=== PATIENT | female | born 1955 | race Caucasian/White ===

== ENCOUNTER → 2017-05-24 | Outpatient (CLI) | payer OTHER ==
[~2017-05-24] MED LIST: ADR PO; ADVIL MIGRAINE200 MG PO; ALDACTAZIDE 251 EACH PO; AMBIEN10 MG PO; ASPIR 8181 M1 PO; ATORVASTATIN CA40 MG PO; BUPROPION XL150 MG PO; BUTALB-APAP-CA1 EACH PO; BUTTERBUR; CYMBALTA30 MG PO; DEXILANT60 MG PO; DHEA PO; DIAZEPAM2 MG PO; DULOXETINE HCL60 MG PO; ERGOCALCIF50000 UNIT PO; Ecotrin PO; Fioricet,Esgic,Repan PO; GLUCOPHAGE500 MG PO; KEPPRA500 MG PO; LAMICTAL200 MG PO; LEVETIRACETAM750 M1 PO; LEVOTHROID150 MCG PO; LEVOTHYROXINE175 MCG PO; Lopressor PO; MAGNESIUM; MELATONIN10 M1 PO; METFORMIN HCL500 MG PO; MULTIVITAMIN1 EAC2 PO; NEXIUM40 MG PO; PEPTO BISMOL240 ML PO; PROMETHAZINE HC25 M1 PO; Plavix PO; Pravachol PO; RELPAX40 MG PO; RIBOFLAVIN50 MG PO; SENOKOT S,PE1 TABLET PO; STRATTERA100 MG PO; STRATTERA18 MG PO; TRAMADOL HCL50 MG PO; TUMS500 MG PO; VITAMIN C500 M1 PO; VITAMIN D250000 UNIT PO; VITAMIN E1000 UNIT PO; Vicodin,Norco 5/325 PO; [UNRECOGNIZED DRUG - OTHER]; [UNRECOGNIZED DRUG - OTHER]; [UNRECOGNIZED DRUG - OTHER] PO
[2017-05-24 17:02] LABS: ANION GAP 7 MEQ/L (2-14); CHLORIDE 106 MEQ/L (99-109); GFR ESTIMATE (CALCULATED) > 59 mL/min/; GLUCOSE 89 mg/dL (70-99); POTASSIUM 4.8 MEQ/L (3.7-5.4); SAMPLE HEMOLYSIS CHECK 0; SAMPLE ICTERIC CHECK 0; SAMPLE LIPEMIA CHECK 0; SODIUM 141 MEQ/L (136-147); UREA NITROGEN (BUN) 17 mg/dL (9-23)
[2017-05-24 17:16] LABS: APPEARANCE CLEAR/COLORLESS; RED CELL AREA COUNTED 18; RED CELL COUNT 0 /MM^3 (0-1); RED CELL DILUTION 1; WBC AREA COUNTED 18; WBC DILUTION 1; WHITE CELL COUNT 3 /MM^3 (0-5); WHITE CELL RAW COUNT 5
[2017-05-24 17:17] LABS: CSF EOSINOPHILS ND % (0-25); MONONUCLEAR WBC'S ND % (50-90); POLYNUCLEAR WBC'S ND % (0-3)
[2017-05-26 17:50] LABS: Albumin, Serum 3.5 g/dL (3.2-4.6); Albumin, Serum 3.6 g/dL (3.2-4.6); IgG Index, CSF 0.42 (<0.66)
[2017-05-26 20:14] LABS: TOXOPLASMA IgM (ACUTE ONLY)+ <8.00 AU/mL (<8.00)
== END | disposition home or self-care (01) ==
LOC: RAD 14:41
PROVIDERS: Psychiatry & Neurology Neurology
PROC: 009U3ZZ Drainage of Spinal Canal, Percutaneous Approach (ICD-10-PCS; principal; 2017-05-24)
DX: R93.0 Abnormal findings on diagnostic imaging of skull and head, not elsewhere classified (principal); R26.81 Unsteadiness on feet
CPT/HCPCS: 62270; 77003; 80048; 82040; 82040 90; 82042 90; 82784 90; 82945; 83873 90; 83916 90; 84157; 86592 90; 86617 90; 86618 90; 86778 90; 87070; 87102; 87116; 87205; 87206; 87899; 89051

== ENCOUNTER 2017-07-24 22:59 | Emergency (ER) | payer OTHER ==
[~2017-07-24] VITALS: Ht 175.3 cm; Wt 87.2 kg
[2017-07-25 00:24] LABS: EOSINOPHIL (%) 0 % (0-5); HEMATOCRIT 31.5 % (36.0-46.0); IMMATURE GRANULOCYTE (%) 0.3 % (0.0-0.7); INSTRUMENT ABS NEUTROPHIL CT 9.2 K/uL; LYMPHOCYTE COUNT 0.9 K/uL (1.0-2.8); MCH 29.5 PG (29.0-34.0); MCHC 33.3 G/DL (30.0-36.0); MCV 88.5 FL (83-99); MEAN PLAT.VOLUME 10.9 uM^3 (9.5-12.4); MONOCYTE (%) 8.3 % (3-12); MONOCYTE COUNT 0.9 K/uL (0-0.8); NEUTROPHIL (%) 82.9 % (45-76); NEUTROPHIL COUNT 9.2 K/uL (1.8-6.4); PLATELET COUNT 172 K/uL (156-360); RBC DIS.WIDTH-CV 13.3 % (11.8-14.6); RBC DIS.WIDTH-SD 43.3 % (39-53); WHITE BLOOD COUNT 11.1 K/uL (4.1-10.2)
[2017-07-25 00:28] LABS: RED BLOOD COUNT 3.56 M/uL (3.80-5.20)
[2017-07-25 00:32] LABS: AMYLASE 42 IU/L (1-118); CHLORIDE 109 mEq/L (99-109); POTASSIUM 4.7 mEq/L (3.7-5.4); SODIUM 142 mEq/L (136-147)
[2017-07-25 00:33] LABS: GLUCOSE 156 mg/dL (70-99)
[2017-07-25 00:35] LABS: ANION GAP 12 MEQ/L (2-14)
[2017-07-25 00:37] LABS: GFR ESTIMATE (CALCULATED) > 59 mL/min/; SERUM ETHYL ALCOHOL < 10 mg/dL
[2017-07-25 00:38] LABS: UREA NITROGEN (BUN) 25 mg/dL (9-23)
[2017-07-25 00:40] LABS: LIPASE 32 U/L (1.0-51.0)
[2017-07-25 02:55] VITALS: BP 137/66
== END 2017-07-25 02:45 | disposition short-term general hospital (02) ==
LOC: EME 22:59
PROVIDERS: Emergency Medicine
DX: S82.851B Displaced trimalleolar fracture of right lower leg, initial encounter for open fracture type I or II (principal); S42.031A Displaced fracture of lateral end of right clavicle, initial encounter for closed fracture; S82.61XA Displaced fracture of lateral malleolus of right fibula, initial encounter for closed fracture; S93.04XA Dislocation of right ankle joint, initial encounter; W10.9XXA Fall (on) (from) unspecified stairs and steps, initial encounter; Y92.009 Unspecified place in unspecified non-institutional (private) residence as the place of occurrence of the external cause; Z23 Encounter for immunization; Z79.82 Long term (current) use of aspirin; I25.2 Old myocardial infarction; E03.9 Hypothyroidism, unspecified; E11.9 Type 2 diabetes mellitus without complications; E78.5 Hyperlipidemia, unspecified; F32.9 Major depressive disorder, single episode, unspecified; J45.909 Unspecified asthma, uncomplicated; I10 Essential (primary) hypertension; K21.9 Gastro-esophageal reflux disease without esophagitis
CPT/HCPCS: 70450; 72125; 73030; 73600; 73610; 80048; 81003; 82150; 83690; 85025; 86850; 86900; 86901; G0480; J0690; J2405; J3010

== ENCOUNTER 2017-10-12 17:06 | Emergency (ER) | payer OTHER ==
[~2017-10-12] VITALS: Ht 172.7 cm; Wt 90.0 kg
[2017-10-12 17:22] VITALS: BP 136/97
== END 2017-10-12 18:21 | disposition left against medical advice (07) ==
LOC: EME 17:06
DX: M79.604 Pain in right leg (principal); R50.9 Fever, unspecified; Z98.890 Other specified postprocedural states; Z53.21 Procedure and treatment not carried out due to patient leaving prior to being seen by health care provider